=== PATIENT | female | born 1965 | race Caucasian/White ===

== ENCOUNTER 2018-10-10 09:10 | Outpatient (CLI) | payer MEDICARE, MEDICAID ==
--- NOTE | 2018-10-10 13:23 | MRI ---
BRAIN MRI WITH AND WITHOUT CONTRAST: Date: 10/10/18 COMPARISON: 06/05/18. HISTORY: Reevaluate meningioma. TECHNIQUE: Multiplanar, multisequence MR imaging of the brain provided with and without contrast. FINDINGS: The diffusion-weighted imaging demonstrates no evidence for acute infarction. The axial gradient echo imaging demonstrates no evidence for intracranial hemorrhage. There is partial opacification of the maxillary sinus on the left, with mucosal thickening, as well a s a round, nonenhancing polypoid lesion within the left maxillary sinus, unchanged. No midline shift, mass effect, or ventricular enlargement is noted. There is an extra-axial mass anteriorly and on the right in the frontal lobe abutting the falx with s table T1 and T2 isointensity. Postcontrast imaging demonstrates stable enhancement of this lesion. It measures approximately 8.0 mm in craniocaudal dimension, 8.0 mm in transverse dimension, and 1.1 cm in AP dimension, unchanged when compared to the 06/05/18 examination. No additional enhancing lesion identified. IMPRESSION: Stable enhancing extra-axial lesion in the medial right frontal region suggesting a stable parafalcin e meningioma. POS: [facility]
== END 2018-10-10 09:11 | disposition home or self-care (01) ==
LOC: TBSIIMAG 09:10
PROVIDERS: ATTEND Neurological Surgery
DX: D49.6 Neoplasm of unspecified behavior of brain (principal); G93.89 Other specified disorders of brain
CPT/HCPCS: 70553

== ENCOUNTER 2018-11-14 11:34 | Outpatient (CLI) | payer MEDICARE, MEDICAID ==
--- NOTE | 2018-11-14 12:24 | RAD ---
THREE VIEWS LUMBAR SPINE WITH FLEXION AND EXTENSION VIEWS: Date: 11-14-18 History: Chronic low back pain. History of lumbar surgery. FINDINGS: Based on sagittal images, there appear to be five non-rib bearing lumbar type vertebral bodies. Biped icular screws are seen in the L3, L4, L5 and S1 pedicle levels. The vertebral body heights are within normal limits. There is grade I anterolisthesis of L2 on L3 measuring 4 mm on flexion which corrects on extension with the degree of listhesis only measuring approximately 1-2 mm. There is narrowing of the intervertebral disc spaces at all levels of the lumbar spine with endplate degenerative changes seen. Laminectomy defects are seen extending from the level of the L2 vertebral body to the lumbosacr al junction. Surgical clips overlie the upper abdomen. Vascular calcifications seen in the abdominal aorta. IMPRESSION: 1. Post-surgical changes and degenerative changes of the lumbar spine. 2. Grade I anterolisthesis of L2 on L3 with mild abnormal translational motion between flexion and ex tension. POS: [facility]
--- NOTE | 2018-11-14 20:01 | MRI ---
MRI OF LUMBAR SPINE PERFORMED WITHOUT CONTRAST ENHANCEMENT: 11/14/18 HISTORY: Chronic low back pain. Vertebral bodies are normal in height. there is severe disc narrowing at L2-3, L3-4 and L4-5 with Mod ic type changes. 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 There is no significant periaortic adenopathy. The right kidney is normal. The left kidney is not visualized. Postoperative changes exte nd from the L2-3 level to L5-S1. T12-L1: Unremarkable. L1-2: Unremarkable. L2-3: There is a disc bulge at this level. There are facet hypertrophic changes and some ligamentous hypertrophic changes. Mildly narrows the transverse dimension of the canal. The facet changes are antonia rly prominent. There is moderate right and mild left foraminal narrowing. L3-4: Postop laminectomy changes are seen at this level. Prominent degenerative facet changes are not ed. No significant canal narrowing. There is some borderline right sided foraminal narrowing. L4-5: Again postop changes seen at this level. Prominent degenerative facet changes and mild right an d marked left sided foraminal narrowing is seen. L5-S1: No significant canal stenosis. Some mild left foraminal narrowing is seen. IMPRESSION: 1. Postoperative changes of the spine extending from the L2-3 through the L5-S1 level with facet screw placement along the course of the spine. Multilevel areas of foraminal stenosis is noted. Also some mild narrowing to the canal at the L2-3 level as discussed above. 2. Absent left kidney. POS: [facility]
== END 2018-11-14 11:35 | disposition home or self-care (01) ==
LOC: TBSIIMAG 11:34 → SCSMRI 11:35
PROVIDERS: ATTEND Neurological Surgery
DX: M47.26 Other spondylosis with radiculopathy, lumbar region (principal); M43.16 Spondylolisthesis, lumbar region; M48.061 Spinal stenosis, lumbar region without neurogenic claudication; Z90.5 Acquired absence of kidney; Z98.890 Other specified postprocedural states
CPT/HCPCS: 72100; 72148

== ENCOUNTER 2020-12-03 10:02 | Outpatient (CLI) | payer MEDICARE, MEDICAID | END 2020-12-03 10:03 | disposition home or self-care (01) | LOC: TBSIIMAG 10:02 | PROVIDERS: ATTEND Neurological Surgery | DX: M54.2 Cervicalgia (principal); Z98.1 Arthrodesis status; M50.80 Other cervical disc disorders, unspecified cervical region | CPT/HCPCS: 72040 ==